=== PATIENT | male | born 1980 | race Caucasian/White ===

== ENCOUNTER 2016-05-21 12:06 | Emergency (ER) | payer OTHER ==
[2016-05-21 12:24] VITALS: BP 129/89; PULSE 59; RESP 17; TEMP 98
--- NOTE | 2016-05-21 13:39 | ED ---
General Adult HPI - General Chief complaint: Back Pain/Injury Stated complaint: Back pain Time Seen by Provider: 05/21/16 13:26 Source: patient, RN notes reviewed Mode of arrival: ambulatory Limitations: no limitations - History of Present Illness Initial comments: Patient is a 35-year-old male who presents emergency room today with a chief complaint of right-sided lower back pain over the last few months. 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 States he was lifting some heavy buckets at work one day. Denies any specific injury or trauma. States it began as a soreness. States he follow-up the chiropractor who has been trying to make adjustments. Patient states that the pain greatly increased today after he sneezed. He does admit that he's had pain that has radiated down into the right leg to the back of the knee. States is not new today. Denies any bowel or bladder incontinence or retention. Denies any saddle anesthesia. Patient states that he has used ibuprofen at home with some relief of the symptoms. Does admit that it's worse with movements. He denies any other complaints. Patient denies any recent fever, chills, shortness of breath, chest pain, abdominal pain, nausea or vomiting, numbness or tingling, dysuria or hematuria, constipation or diarrhea, headaches or visual changes, or any other complaints. - Related Data Home Medications Medication Instructions Recorded Confirmed Ibuprofen [Motrin] 800 mg PO Q8HR PRN 05/21/16 05/21/16 Previous Rx's Medication Instructions Recorded Cyclobenzaprine [Flexeril] 10 mg PO TID #20 tab 05/21/16 Dexamethasone 0.75 mg PO DIRECTED #12 tablet 05/21/16 Ibuprofen [Motrin] 800 mg PO Q6HR PRN #30 tab 05/21/16 Allergies Allergy/AdvReac Type Severity Reaction Status Date / Time No Known Allergies Allergy Verified 05/21/16 13:11 Review of Systems ROS Statement: Those systems with pertinent positive or pertinent negative responses have been documented in the HPI. ROS Other: All systems not noted in ROS Statement are negative. Past Medical History Past Medical History: No Reported History History of Any Multi-Drug Resistant Organisms: None Reported, MRSA Date of last positivie culture/infection: 2004 MDRO Source:: elbow Past Surgical History: No Surgical Hx Reported Past Psychological History: No Psychological Hx Reported Smoking Status: Never smoker Past Alcohol Use History: Occasional Past Drug Use History: None Reported General Exam - General Exam Comments Initial Comments: General: The patient is awake and alert, in no distress, and does not appear acutely ill. Eye: Pupils are equal, round and reactive to light, extra-ocular movements are intact. No nystagmus. There is normal conjunctiva bilaterally. No signs of icterus. Ears, nose, mouth and throat: There are moist mucous membranes and no oral lesions. Neck: The neck is supple, there is no tenderness or JVD. Cardiovascular: There is a regular rate and rhythm. No murmur, rub or gallop is appreciated. Respiratory: Lungs are clear to auscultation, respirations are non-labored, breath sounds are equal. No wheezes, stridor, rales, or rhonchi. Gastrointestinal: Soft, non-distended, non-tender abdomen without masses or organomegaly noted. There is no rebound or guarding present. No CVA tenderness. Bowel sounds are unremarkable. Musculoskeletal: Normal appearance of the thoracic, lumbar spine. No step- offs forms appreciated. No tenderness over the spinous processes. Patient does have tenderness. Palpation paravertebrally to the right side of lumbar. Shows good range of motion. Sensation intact. Pulses equal bilaterally 2+. Strength 5/5. Neurological: A&O x 3. CN II-XII intact, There are no obvious motor or sensory deficits. Coordination appears grossly intact. Speech is normal. Skin: Skin is warm and dry and no rashes or lesions are noted. Psychiatric: Cooperative, appropriate mood & affect, normal judgment. Limitations: no limitations Course Vital Signs 05/21/16 12:21 Temperature 98.0 F Pulse Rate 59 L Respiratory 17 Rate Blood Pressure 129/89 O2 Sat by Pulse 97 Oximetry Medical Decision Making - Medical Decision Making Patient's x-rays reviewed and are remarkable. Patient will be started on a muscle relaxer advised continue anti-inflammatories and also given a steroid Dosepak for his symptoms. He is advised to follow-up family doctor over the next 2-5 days for the symptoms. Advised return to emergency room if any symptoms increase worsen. Patient states understanding and is in agreement. Disposition Clinical Impression: Lumbar radiculopathy, acute Disposition: HOME SELF-CARE Condition: Good Instructions: Acute Low Back Pain (ED) Additional Instructions: Please use medication as discussed. Please be aware that muscle relaxant may make you drowsy. Please follow-up with family doctor in the next 2 to 5 days. Please return to emergency room if the symptoms increase or worsen or for any other concerns. Prescriptions: Cyclobenzaprine [Flexeril] 10 mg PO TID #20 tab Dexamethasone 0.75 mg PO DIRECTED #12 tablet Ibuprofen [Motrin] 800 mg PO Q6HR PRN #30 tab PRN Reason: Pain Time of Disposition: 14:01
--- NOTE | 2016-05-21 14:08 | XR ---
Lumbar spine HISTORY: Low back pain 3 views of the lumbar spine No comparisons Lumbar vertebral bodies show preserved height, alignment, and bone mineralization. Loss of disc heigh t present at L5-S1. Spina bifida occulta is present at S1. IMPRESSION: There may be degenerative disc disease L5-S1, consider lumbar MRI
== END 2016-05-21 14:20 | disposition home or self-care (01) ==
LOC: EC 12:06
DX: M54.16 Radiculopathy, lumbar region (principal); X50.0XXA Overexertion from strenuous movement or load, initial encounter; Y99.0 Civilian activity done for income or pay
CPT/HCPCS: 72100; 99283

== ENCOUNTER → 2016-07-31 | Outpatient (CLI) | payer OTHER ==
--- NOTE | 2016-07-31 14:28 | MR ---
EXAMINATION TYPE: MR lumbar spine wo con DATE OF EXAM: 07/31/2016 1:19 PM COMPARISON: NONE HISTORY: Low back pain, rt leg pain TECHNIQUE: T1 and T2 axial and sagittal images of the lumbar spine are submitted. FINDINGS: There is no abnormal signal seen within the visualized spinal cord or paraspinal soft tissu es. At T12-L1 there is no disc herniation or canal stenosis. At L1-2 there is no degenerative disc disease or disc herniation. No Canal stenosis. No foraminal enc roachment. At L2-3 there is disc desiccation. No focal herniation or foraminal encroachment. No Canal stenosis. At L3-4 there is no disc herniation or canal stenosis. No foraminal encroachment. At L4-5 there is mild facet arthropathy. No disc herniation or canal stenosis. No foraminal encroachm ent. At L5-S1 there is degenerative disc disease and large right paracentral and central disc herniation w ith compression of the right nerve root. There is distortion of the right anterolateral thecal sac an d significant right-sided foraminal encroachment. IMPRESSION: 1. At L5-S1 there is a large right paracentral and central disc herniation with compression of the ri ght nerve root. There is distortion of the right anterolateral thecal sac and significant right-sided foraminal encroachment.
== END | disposition home or self-care (01) ==
LOC: RADMRIMAIN 12:33
PROVIDERS: ATTEND Internal Medicine
DX: M51.26 Other intervertebral disc displacement, lumbar region (principal)
CPT/HCPCS: 72148

== ENCOUNTER → 2017-07-29 | Outpatient (CLI) | payer OTHER ==
--- NOTE | 2017-07-29 10:09 | NM ---
EXAMINATION TYPE: NM hepatobiliary w CCK DATE OF EXAM: 07/29/2017 COMPARISON: Ultrasound gallbladder 07/29/2017 HISTORY: Gastroesophageal reflux disease, K 21.0 TECHNIQUE: After the intravenous administration of 4.7 mCi Tc 99m Mebrofenin hepatobiliary scintigrap hy is performed. Immediate images post injection. FINDINGS: There is satisfactory initial accumulation of tracer by the liver. The gallbladder is visualized wit hin 6 minutes. The small bowel activity is noted within 12 minutes. At one hour CCK was administere d, patient was injected with 1.8 mcg of Kinevac, and gallbladder ejection fraction is calculated at 4 7%, in the normal range. Therefore there is no scintigraphic evidence of cystic or common bile duct obstruction to suggest acute cholecystitis or gallbladder dyskinesia. IMPRESSION: Exam is within normal limits.
--- NOTE | 2017-07-29 10:28 | US ---
EXAMINATION TYPE: US gallbladder DATE OF EXAM: 07/29/2017 COMPARISON: NONE CLINICAL HISTORY: K21.0 Gastroesphageal reflux disease. Patient states having pain for a long time. NPO. No previous surgeries. EXAM MEASUREMENTS: Liver Length: 14.2 cm Gallbladder Wall: 0.2 cm CHD: 0.2 cm Right Kidney: 11.1 x 5.4 x 5.3 cm Pancreas: Limited visualization due to overlying bowel gas. Tail obscured by overlying bowel gas Liver: wnl Gallbladder: wnl Evidence for sonographic Jackson's sign: neg CBD: Obscured by overlying bowel gas CHD: wnl as visualized Right Kidney: wnl There is no ascites. IMPRESSION: No significant abnormality is evident. Limitations as described
== END | disposition home or self-care (01) ==
LOC: RADUSMAIN 07:45
PROVIDERS: ATTEND Surgery
DX: K21.9 Gastro-esophageal reflux disease without esophagitis (principal); K29.70 Gastritis, unspecified, without bleeding; K81.1 Chronic cholecystitis; K82.8 Other specified diseases of gallbladder
CPT/HCPCS: 76705; 78227; A9537; J2805

== ENCOUNTER 2017-08-29 09:18 | Day surgery (SDC) | payer OTHER ==
[2017-08-27 09:03] VITALS: BMI 27.7
[~2017-08-29 09:18] MED LIST: LACTATED RINGERS 1,000 ML IV SCH; LIDOCAINE 1% 20 ML VIAL (10MG/ML) FOR IV START INTRADERMA PRN
[2017-08-29 10:36] VITALS: RESP 16; TEMP 97.8
[2017-08-29] MEDS ORDERED: LIDOCAINE 1% INJ 10MG/ML (20 ML MDV) ONE (11:38)
[2017-08-29] MEDS ORDERED: GLYCOPYRROLATE 0.2 MG/ML 2 ML VIAL ONE (11:38)
[2017-08-29] MEDS ORDERED: PROPOFOL 10 MG/ML 20 ML VIAL IV ONE (11:38)
--- NOTE | 2017-08-29 11:42 | P.GSHP ---
History of Present Illness H&P Date: 08/29/17 Chief Complaint: GERD, epigastric pain This is a 37-year-old male presents today for EGD. Patient is admitted with GERD epigastric pain. He's had a recent ultrasound the gallbladder and HIDA scan which are normal. Past Medical History Past Medical History: GERD/Reflux Additional Past Medical History / Comment(s): intermittent abdominal pain. DDD History of Any Multi-Drug Resistant Organisms: MRSA Date of last positivie culture/infection: 2004 MDRO Source:: rt elbow Past Surgical History: No Surgical Hx Reported Past Anesthesia/Blood Transfusion Reactions: No Reported Reaction Additional Past Anesthesia/Blood Transfusion Reaction / Comment(s): no hx anesthesia or blood transfusion Smoking Status: Never smoker - Past Family History Mother Family Medical History: No Reported History Medications and Allergies Home Medications Medication Instructions Recorded Confirmed Type [place]-3 Fatty Acids/Fish Oil [Fish 1 each PO DAILY 07/24/17 08/27/17 History Oil 1,000 mg Softgel] Pyridoxine [Vitamin B-6] 50 mg PO DAILY 07/24/17 08/29/17 History Ranitidine HCl [Zantac] 150 mg PO DAILY PRN 07/24/17 08/29/17 History Allergies Allergy/AdvReac Type Severity Reaction Status Date / Time No Known Allergies Allergy Verified 08/29/17 10:33 Surgical - Exam Vital Signs Temp Pulse Resp BP Pulse Ox 97.8 F 68 16 120/63 100 08/29/17 10:36 08/29/17 10:36 08/29/17 10:36 08/29/17 10:36 08/29/17 10:36 - General well developed, no distress - Eyes PERRL - ENT normal pinna - Neck no masses - Respiratory normal expansion - Cardiovascular Rhythm: regular - Abdomen Abdomen: soft, non tender Assessment and Plan Assessment: GERD, epigastric pain. We'll perform EGD
--- NOTE | 2017-08-29 11:49 | P.OP ---
Date of Procedure: 08/29/17 Preoperative Diagnosis: Epigastric pain Postoperative Diagnosis: Duodenal ulcer Antral gastritis No evidence of hiatal hernia Procedure(s) Performed: EGD Anesthesia: MAC Surgeon: Neeraj Coyle Pathology: other (Antrum, duodenum) Condition: stable Disposition: PACU Description of Procedure: The patient's placed on the endoscopy table in the lateral position. He received IV sedation. The gastroscope was placed oropharynx and passed in the esophagus and into the stomach. Scope was then placed through the pylorus. The first and second portion of the duodenum. Inflamed. There is evidence of some small ulceration of the first part of the duodenum. This area is biopsied. The scope was then brought back the antrum and this was inflamed and another biopsy performed. The scope was unretroflexed and remainder the stomach appeared normal. The GE junction was at 40 cm. There is no evidence of any hiatal hernia. The distal esophagus appeared normal. The scope was then brought back into the proximal esophagus this appeared normal. Scope was withdrawn for patient.
[2017-08-29 12:18] VITALS: BP 125/71; PULSE 60
== END 2017-08-29 12:25 | disposition home or self-care (01) ==
LOC: ORWHC2ENDO 09:18
PROVIDERS: ATTEND Surgery
DX: K26.9 Duodenal ulcer, unspecified as acute or chronic, without hemorrhage or perforation (principal); K29.50 Unspecified chronic gastritis without bleeding; B96.81 Helicobacter pylori [H. pylori] as the cause of diseases classified elsewhere; K29.80 Duodenitis without bleeding; K21.9 Gastro-esophageal reflux disease without esophagitis; Z86.14 Personal history of Methicillin resistant Staphylococcus aureus infection
CPT/HCPCS: 88305; 88342; 43239; J2001; J2704

== ENCOUNTER 2017-10-15 09:29 | Day surgery (SDC) | payer OTHER ==
[2017-10-13 09:34] VITALS: BMI 27.8
[2017-10-15] MEDS ORDERED: LIDOCAINE 1% INJ 10MG/ML (20 ML MDV) ONE (10:27)
[2017-10-15] MEDS ORDERED: PROPOFOL 10 MG/ML 20 ML VIAL IV ONE (10:27)
[2017-10-15] MEDS ORDERED: LACTATED RINGERS 1,000 ML IV ONE ×2 (11:00)
[2017-10-15 11:14] VITALS: RESP 16
[2017-10-15 11:18] VITALS: BP 126/83; PULSE 66
--- NOTE | 2017-10-15 16:08 | P.OP ---
Date of Procedure: 10/15/17 Preoperative Diagnosis: Peptic ulcer disease Postoperative Diagnosis: Healed duodenal ulcer Anesthesia: MAC Surgeon: Neeraj Coyle Pathology: other (Duodenum) Condition: stable Disposition: PACU Description of Procedure: The patient's placed on the endoscopy table lateral position. He received IV sedation. The gastroscope placed oropharynx passed in the esophagus and stomach. Scope then placed through the pylorus. The first and second portion of the duodenum appeared normal. The scope was then brought back the and a biopsy biopsy of the first portion duodenum was performed. There is no ulcers seen. Scope was brought back the antrum and this appeared normal. Scope was retroflexed the remainder some appeared normal. The GE junction was at 40 cm. The distal esophagus and proximal esophagus appeared normal. Scope was withdrawn for patient.
== END 2017-10-15 11:35 | disposition home or self-care (01) ==
LOC: ORWHC2ENDO 09:29
PROVIDERS: ATTEND Surgery
DX: Z09 Encounter for follow-up examination after completed treatment for conditions other than malignant neoplasm (principal); Z87.11 Personal history of peptic ulcer disease
CPT/HCPCS: 88305; 43239; J2001; J2704

== ENCOUNTER 2021-01-28 03:15 | Emergency (ER) | payer OTHER ==
[2021-01-28 03:20] VITALS: BP 123/83; PULSE 87; RESP 19; TEMP 98.9
[2021-01-28] MEDS ORDERED: SULFAMETH-TMP DS STARTER PACK 2 TAB BTL PO STA (03:59)
[2021-01-28] MEDS ORDERED: SULFAMETHOX-TMP 800-160MG 1 EACH TAB PO STA (03:59)
--- NOTE | 2021-01-28 04:00 | ED ---
Skin/Abscess/FB HPI - General Chief complaint: Skin/Abscess/Foreign Body Stated complaint: Cyst on Elbow Time Seen by Provider: 01/28/21 03:21 Source: patient, RN notes reviewed, old records reviewed Mode of arrival: ambulatory Limitations: no limitations - History of Present Illness Initial comments: This is a 40-year-old male to the emergency department for evaluation of right arm pain. Patient does have swelling in the area of his right forearm. He does have history of abscess and MRSA with prior need for incision and drainage. But patient states he was able to get this new area of pain to drinking yesterday but the redness is just increased. Patient has no other complaints As an aside patient does complain of some nose pain from her nose head injury about a week ago he was concern for his nose may be broken MD complaint: abscess/boil, other (Cellulitis) -: days(s) Tetanus Up to Date: yes Location: RUE Severity: moderate Severity scale (1-10): 4 Quality: aching Consistency: constant Improves with: none Worsens with: none Context: none Associated symptoms: denies other symptoms Treatments Prior to Arrival: none - Related Data Home Medications Medication Instructions Recorded Confirmed [place]-3 Fatty Acids/Fish Oil [Fish 1 each PO DAILY 07/24/17 10/13/17 Oil 1,000 mg Softgel] Pyridoxine [Vitamin B-6] 50 mg PO DAILY 07/24/17 10/13/17 Ranitidine HCl [Zantac] 150 mg PO DAILY PRN 07/24/17 10/13/17 Previous Rx's Medication Instructions Recorded Omeprazole 40 mg PO DAILY #60 capsule. 08/29/17 Sulfamethox-Tmp 800-160Mg [Bactrim 2 tab PO BID #40 tab 01/28/21 DS 800-160 mg] Allergies Allergy/AdvReac Type Severity Reaction Status Date / Time No Known Allergies Allergy Verified 01/28/21 03:20 Review of Systems ROS Statement: Those systems with pertinent positive or pertinent negative responses have been documented in the HPI. ROS Other: All systems not noted in ROS Statement are negative. Past Medical History Past Medical History: GERD/Reflux Additional Past Medical History / Comment(s): intermittent abdominal pain. DDD History of Any Multi-Drug Resistant Organisms: MRSA Date of last positivie culture/infection: 2004 MDRO Source:: rt elbow Past Surgical History: No Surgical Hx Reported Additional Past Surgical History / Comment(s): EGD 08/29/17 Past Anesthesia/Blood Transfusion Reactions: No Reported Reaction Additional Past Anesthesia/Blood Transfusion Reaction / Comment(s): no hx anesthesia or blood transfusion Past Psychological History: No Psychological Hx Reported Smoking Status: Never smoker Past Alcohol Use History: Occasional Past Drug Use History: None Reported - Past Family History Mother Family Medical History: No Reported History General Exam - General Exam Comments Initial Comments: Patient does have cellulitic, indurated area of her right forearm General appearance: alert, in no apparent distress Head exam: Present: atraumatic, normocephalic, normal inspection Eye exam: Present: normal appearance, PERRL, EOMI. Absent: scleral icterus, conjunctival injection, periorbital swelling ENT exam: Present: normal exam, mucous membranes moist Neck exam: Present: normal inspection. Absent: tenderness, meningismus, lymphadenopathy Respiratory exam: Present: normal lung sounds bilaterally. Absent: respiratory distress, wheezes, rales, rhonchi, stridor Cardiovascular Exam: Present: regular rate, normal rhythm, normal heart sounds. Absent: systolic murmur, diastolic murmur, rubs, gallop, clicks GI/Abdominal exam: Present: soft, normal bowel sounds. Absent: distended, tenderness, guarding, rebound, rigid Extremities exam: Present: normal inspection, full ROM, normal capillary refill. Absent: tenderness, pedal edema, joint swelling, calf tenderness Back exam: Present: normal inspection Neurological exam: Present: alert, oriented X3, CN II-XII intact Psychiatric exam: Present: normal affect, normal mood Skin exam: Present: warm, dry, intact, normal color. Absent: rash Course Vital Signs 01/28/21 03:18 Temperature 98.9 F Pulse Rate 87 Respiratory 19 Rate Blood Pressure 123/83 O2 Sat by Pulse 98 Oximetry - Reevaluation(s) Reevaluation #1: 01/28/21 Medical record is reviewed Symptoms improved here in the emergency department Patient informed results and questions answered Patient is in no distress Medical Decision Making - Medical Decision Making 4-year-old male DF for evaluation. Patient is found to have cellulitis with no significant abscess currently of the right forearm will place on antibiotics is also showing evidence of recent nasal fracture no need for imaging, no septal hematoma, patient can be discharged home Disposition Clinical Impression: Right forearm cellulitis, Nasal fracture Disposition: HOME SELF-CARE Condition: Good Instructions (If sedation given, give patient instructions): Cellulitis (ED), Abscess (ED) Prescriptions: Sulfamethox-Tmp 800-160Mg [Bactrim DS 800-160 mg] 2 tab PO BID #40 tab Is patient prescribed a controlled substance at d/c from ED?: No Referrals: Jose Maria Mims MD [Primary Care Provider] - 1-2 days
== END 2021-01-28 04:29 | disposition home or self-care (01) ==
LOC: EC 03:15
DX: L03.113 Cellulitis of right upper limb (principal); S02.2XXA Fracture of nasal bones, initial encounter for closed fracture; K21.9 Gastro-esophageal reflux disease without esophagitis; X58.XXXA Exposure to other specified factors, initial encounter
CPT/HCPCS: 99283

== ENCOUNTER 2021-01-29 00:15 | Emergency (ER) | payer OTHER ==
[2021-01-29 00:20] VITALS: BP 127/79; PULSE 96; RESP 19; TEMP 98.7
[2021-01-29] MEDS ORDERED: KETOROLAC 15 MG/ML 1 ML VIAL IM STA (01:09)
[2021-01-29] MEDS ORDERED: ACET/COD 300 MG/30 MG STARTER PACK 6 TAB BTL PO STA (01:09)
--- NOTE | 2021-01-29 01:10 | ED ---
Skin/Abscess/FB HPI - General Chief complaint: Skin/Abscess/Foreign Body Stated complaint: Recheck cellulitis Time Seen by Provider: 01/29/21 00:32 Source: patient Mode of arrival: ambulatory - History of Present Illness Initial comments: 40-year-old male patient presented to the emergency department today for evaluation of redness and swelling to the right forearm. Patient states that he was seen and evaluated last night did start antibiotics. States he is not feeling any better. States he has had similar symptoms in the past and had to have it drained. He denies any fever or chills per denies nausea or vomiting. He denies any injury to the area. Believes this started with an ingrown hair. Does have history of MRSA. - Related Data Home Medications Medication Instructions Recorded Confirmed [place]-3 Fatty Acids/Fish Oil [Fish 1 each PO DAILY 07/24/17 10/13/17 Oil 1,000 mg Softgel] Pyridoxine [Vitamin B-6] 50 mg PO DAILY 07/24/17 10/13/17 Ranitidine HCl [Zantac] 150 mg PO DAILY PRN 07/24/17 10/13/17 Previous Rx's Medication Instructions Recorded Omeprazole 40 mg PO DAILY #60 capsule. 08/29/17 Sulfamethox-Tmp 800-160Mg [Bactrim 2 tab PO BID #40 tab 01/28/21 DS 800-160 mg] Allergies Allergy/AdvReac Type Severity Reaction Status Date / Time No Known Allergies Allergy Verified 01/29/21 00:21 Review of Systems ROS Statement: Those systems with pertinent positive or pertinent negative responses have been documented in the HPI. ROS Other: All systems not noted in ROS Statement are negative. Past Medical History Past Medical History: GERD/Reflux Additional Past Medical History / Comment(s): intermittent abdominal pain. DDD History of Any Multi-Drug Resistant Organisms: MRSA Date of last positivie culture/infection: 2004 MDRO Source:: rt elbow Past Surgical History: No Surgical Hx Reported Additional Past Surgical History / Comment(s): EGD 08/29/17 Past Anesthesia/Blood Transfusion Reactions: No Reported Reaction Additional Past Anesthesia/Blood Transfusion Reaction / Comment(s): no hx anesthesia or blood transfusion Past Psychological History: No Psychological Hx Reported Smoking Status: Never smoker Past Alcohol Use History: Occasional Past Drug Use History: None Reported - Past Family History Mother Family Medical History: No Reported History General Exam General appearance: alert, in no apparent distress Respiratory exam: Present: normal lung sounds bilaterally. Absent: respiratory distress, wheezes, rales, rhonchi, stridor Cardiovascular Exam: Present: regular rate, normal rhythm, normal heart sounds. Absent: systolic murmur, diastolic murmur, rubs, gallop, clicks Extremities exam: Present: full ROM, tenderness (Right medial forearm), normal capillary refill, other (There is soft tissue swelling, erythema noted over the left medial-dorsal forearm. There is central pustule lesion, no drainage. Area is indurated with no fluctuance.). Absent: pedal edema, joint swelling, calf tenderness Neurological exam: Present: alert, oriented X3, CN II-XII intact Psychiatric exam: Present: normal affect, normal mood Skin exam: Present: warm, dry, intact, normal color. Absent: rash Course Vital Signs 01/29/21 00:18 Temperature 98.7 F Pulse Rate 96 Respiratory 19 Rate Blood Pressure 127/79 O2 Sat by Pulse 99 Oximetry Medical Decision Making - Medical Decision Making 40-year-old male patient presented to the emergency department for reevaluation of right forearm infection. Physical examination did reveal a patch of erythema and swelling with a central pustular lesion. There is no fluctuance, area was indurated. I did press until a tiny amount of pus was expelled from the wound. There was no evidence for drainable abscess. He has taken 2 doses of antibiotic. He is instructed to continue with his antibiotic as it does cover MRSA. He is instructed to apply hot compresses over the area. He is instructed to follow-up with his primary care physician for recheck in 1-2 days. Return parameters were discussed in detail. He verbalizes understanding and agrees this plan. My attending is Dr. Archibald. Disposition Clinical Impression: Abscess of right forearm Disposition: HOME SELF-CARE Condition: Good Instructions (If sedation given, give patient instructions): Abscess (ED) Additional Instructions: Apply warm compresses over the area 4-5 times per day. Complete current antibiotic as directed. Take pain medication sparingly for severe pain. Follow up with the primary care physician for recheck in 1-2 days. Return to the emergency department for any new, worsening, or concerning symptoms. Is patient prescribed a controlled substance at d/c from ED?: No Referrals: Jose Maria Mims MD [Primary Care Provider] - 1-2 days Time of Disposition: 01:09
== END 2021-01-29 01:24 | disposition home or self-care (01) ==
LOC: EC 00:15
DX: L02.413 Cutaneous abscess of right upper limb (principal)
CPT/HCPCS: 99283; 96372; J1885